=== PATIENT | female | born 1950 | race Native Hawaiian/Other Pacific Islander ===

== ENCOUNTER 2022-06-25 19:55 | Emergency (ER) | payer OTHER ==
[~2022-06-25] VITALS: Ht 170.2 cm; Wt 101.6 kg
[2022-06-25 20:00] VITALS: BP 112/40; TEMP 98.7
[2022-06-25 20:24] LABS: PLATELET COUNT 233 K/uL (152-353)
[2022-06-25 20:32] LABS: POTASSIUM 3.5 mmol/L (3.6-5.2)
[2022-06-26] MEDS ORDERED: ARIPIPRAZOLE5 MG PO (08:24)
[2022-06-26] MEDS ORDERED: ALBU90AE13 INH (08:25)
[2022-06-26] MEDS ORDERED: BREO ELLIPTA 201 INH INH (08:27)
[2022-06-26] MEDS ORDERED: CETIRIZINE HYDR10 MG PO (08:31)
[2022-06-26] MEDS ORDERED: VITAMIN B-121000 MC2 PO (08:32)
[2022-06-26] MEDS ORDERED: FARXIGA10 MG PO (08:33)
[2022-06-26] MEDS ORDERED: ELIQUIS5 MG PO (08:33)
[2022-06-26] MEDS ORDERED: GABA300C2 PO (08:34)
[2022-06-26] MEDS ORDERED: HYDR25TA60 PO (08:35)
[2022-06-26] MEDS ORDERED: HYDR-3182 PO (08:36)
[2022-06-26] MEDS ORDERED: HYDROXYZINE HYD25 MG PO (08:38)
[2022-06-26] MEDS ORDERED: LIVALO2 M1 PO (08:39)
[2022-06-26] MEDS ORDERED: ESCI20TA PO (08:39)
[2022-06-26] MEDS ORDERED: NITR0.4S2 SL (08:41)
[2022-06-26] MEDS ORDERED: OMEGA-31000 MG PO (08:43)
[2022-06-26] MEDS ORDERED: DITROPAN XL10 MG PO (08:44)
[2022-06-26] MEDS ORDERED: OMEPRAZOLE DR40 MG PO (08:44)
[2022-06-26] MEDS ORDERED: POT CHLORIDE10 MEQ PO (08:45)
[2022-06-26] MEDS ORDERED: SAVELLA50 MG PO (08:47)
[2022-06-26] MEDS ORDERED: TEMA30CA18 PO (08:48)
== END 2022-06-25 21:25 | disposition still patient (30) ==
LOC: ED 19:55
PROVIDERS: Emergency Medicine Emergency Medical Services
DX: R46.89 Other symptoms and signs involving appearance and behavior (principal); R45.1 Restlessness and agitation; Z11.52 Encounter for screening for COVID-19; Z04.6 Encounter for general psychiatric examination, requested by authority
CPT/HCPCS: 36415; 80053; 85027; 87635; 93005; 99283; U0003